=== PATIENT | male | born 1950 | race Caucasian/White ===

== ENCOUNTER → 2016-09-03 | Outpatient (CLI) | payer MEDICARE, OTHER ==
--- NOTE | 2016-09-03 16:32 | CR ---
EXAMINATION: Abdomen HISTORY: Pain COMPARISON: None TECHNIQUE: AP and upright views FINDINGS: There is no free air under the diaphragm. There is a nonobstructive bowel gas pattern. No abnormal calcifications project over the kidneys. Mild degenerative changes are noted within the low er lumbar spine and within the SI joints. Hip joint spaces are grossly preserved. IMPRESSION: No acute findings within the abdomen.
== END ==
LOC: MW.CHFP 15:22
PROVIDERS: ATTEND Nurse Practitioner Family
DX: R10.9 Unspecified abdominal pain (principal); Z87.19 Personal history of other diseases of the digestive system
CPT/HCPCS: 36415; 74020; 85025; G0463

== ENCOUNTER → 2016-11-12 | Outpatient (CLI) | payer MEDICARE, OTHER ==
[2016-11-12 12:56] LABS: CHLORIDE,CL 101 mmol/L (98-110); SODIUM,NA 134 mmol/L (136-146)
== END ==
LOC: MW.CHFP 12:08
PROVIDERS: ATTEND Student in an Organized Health Care Education/Training Program
DX: E11.9 Type 2 diabetes mellitus without complications (principal); R10.9 Unspecified abdominal pain
CPT/HCPCS: 36415; 80048; G0463

== ENCOUNTER → 2016-11-14 | Outpatient (CLI) | payer MEDICARE, OTHER ==
[~2016-11-14] MED LIST: Iopamidol 755 MG/ML 500 ML Multipack Bottle IVPUSH STA
--- NOTE | 2016-11-14 14:04 | CT ---
CT of the abdomen and pelvis with contrast. HISTORY: Pain TECHNIQUE: Axial CT images were obtained of the abdomen and pelvis following administration of 100 m L of Isovue-370 in the left arm without complication. Coronal and sagittal reconstructions obtained. FINDINGS: The lung bases are clear, no pleural effusion. The liver, spleen, and adrenal glands appear normal. There is a small diverticulum along the posteri or wall of the stomach near the cardia. The gallbladder is normal. No bulky retroperitoneal lymphad enopathy or abdominal ascites. The kidneys enhance and function symmetrically without evidence of obstructive uropathy. Small renal cysts are noted. The large and small bowel are normal in caliber without evidence of obstruction. Moderate diverticul osis without evidence of diverticulitis. No bulky pelvic lymphadenopathy or free pelvic fluid. There is a prominence of the left iliac vein. No bulky pelvic lymphadenopathy or free pelvic fluid. The u rinary bladder appears normal. Prostate is moderately prominent. There is grade 1-2 anterolisthesis of L5 on S1 with bilateral spondylolysis. IMPRESSION: 1. No acute findings within the abdomen or pelvis. 2. Small diverticulum along the posterior aspect of the stomach. 3. Moderate diverticulosis without evidence of diverticulitis.
== END ==
LOC: MW.DI 11:18
PROVIDERS: ATTEND Student in an Organized Health Care Education/Training Program
DX: R10.9 Unspecified abdominal pain (principal); K31.4 Gastric diverticulum; K57.90 Diverticulosis of intestine, part unspecified, without perforation or abscess without bleeding
CPT/HCPCS: 74177; Q9967

== ENCOUNTER 2017-03-11 15:39 | Emergency (ER) | payer MEDICARE, OTHER ==
[2017-03-11] MEDS ORDERED: Sodium Chloride 0.9% 2.5 ML Syringe FLUSH PRN (16:04)
[2017-03-11] MEDS ORDERED: diphenhydrAMINE 50 MG/ML SDV IVPUSH ONE (16:04)
[2017-03-11] MEDS ORDERED: Sodium Chloride 0.9% 10 ML Syringe FLUSH PRN (16:04)
[2017-03-11] MEDS ORDERED: Sodium Chloride 0.9% 1,000 ML IV ONE (16:04)
[2017-03-11] MEDS ORDERED: Metoclopramide 10 MG/2 ML SDV IV ONE (16:04)
--- NOTE | 2017-03-11 16:09 | EDM.PDOC ---
ED HPI GENERAL MEDICAL PROBLEM - General Chief Complaint: Neuro Symptoms/Deficits Stated Complaint: DIZZY Time Seen by Provider: 03/11/17 15:53 - History of Present Illness INITIAL COMMENTS - FREE TEXT/NARRATIVE: HISTORY AND PHYSICAL: History of present illness: The patient is a 66-year-old male with a history of hypertension who follows in our family practice clinic and presents with complaints of a one-week history of sinus congestion and some drainage but no fevers sore throat chest pain or shortness of breath. The patient said he he had a normal day yesterday overall and eat fried and slept fine. He says that about 2 AM he rolled over in bed going from his left side to his right side and when that occurred he suddenly felt very dizzy which woke him up and he had nausea. He did not have a headache he was not lightheaded and he did not pass out. He has no chest pain or shortness of breath and no focal weakness in any of his extremities. He has no neck or back pain that is new or different as he has chronic neck pain. The patient says that the symptoms have persisted through today and then he had an episode of vomiting which prompted him to come here. He called and scheduled a follow-up appointment on but could not get in sooner to the clinic. Patient says he feels worse when he lays flat or moves his head suddenly and worse when his eyes are closed. He has had no recent trauma Review of systems: As per history of present illness and below otherwise all systems reviewed and negative. Past medical history: As per history of present illness and as reviewed below otherwise noncontributory. Surgical history: As per history of present illness and as reviewed below otherwise noncontributory. Social history: No reported history of drug or alcohol abuse. Family history: As per history of present illness and as reviewed below otherwise noncontributory. Physical exam: Gen.: Well-developed well-nourished man who is nontoxic and vital signs have been noted by me HEENT: Atraumatic, normocephalic, pupils reactive, EOMs are intact and there is nystagmus which is very subtle with a fast component to the right, negative for conjunctival pallor or scleral icterus, mucous membranes moist, throat clear, neck supple, nontender, trachea midline. There is no cervical adenopathy or nuchal rigidity and the TMs are dulled bilaterally. Patient does have a nasal quality to his voice but no discrete sinus tenderness on palpation Lungs: Clear to auscultation, breath sounds equal bilaterally, chest nontender. Heart: S1S2, regular rate and rhythm no overt murmurs Abdomen: Soft, nondistended, nontender. Negative for masses or hepatosplenomegaly. Negative for costovertebral tenderness. Pelvis: Stable nontender. Genitourinary: Deferred. Rectal: Deferred. Extremities: Atraumatic, negative for cords or calf pain. Neurovascular unremarkable. Neuro: Awake, alert, oriented. Cranial nerves II through XII unremarkable. Cerebellum unremarkable. Motor and sensory unremarkable throughout. Exam nonfocal. Please note when I have the patient lying in the supine position he said he did not feel his symptomatology but when he closed his eyes he was immediately very dizzy. He sat up and felt better. When the patient moves his head side to side his symptoms are elicited and it is worse when he turns to the right. Diagnostics: CBC CMP EKG CT scan of the head orthostatic vitals Therapeutics: IV fluids Benadryl Reglan Antivert Patient is feeling much improved and has no more nausea and has minimal dizziness as able to lay flat. I discussed with him and all testing results including the CT scan which only showed a right sphenoid sinusitis acute on chronic. As this seems to be the etiology of his positional vertigo I will treat him with antibiotics and advise for nasal spray and positional behavioral modification at home for sleep. He says he takes Kelly on a daily basis anyway check told him to continue. I will give him Antivert for home and recommend Benadryl use for the next 24 hours. I advised him to keep his appointment with Dr. Hale on for reevaluation and further care of this problem Impression: Right sphenoid sinusitis acute on chronic with benign positional vertigo improving Definitive disposition and diagnosis as appropriate pending reevaluation and review of above. - Related Data Allergies Allergy/AdvReac Type Severity Reaction Status Date / Time No Known Allergies Allergy Verified 03/11/17 15:51 Home Meds: Home Meds Aspirin [Lo-Dose Aspirin EC] 81 mg PO DAILY 03/11/17 [History] Cholecalciferol (Vitamin D3) [Vitamin D3] 1 cap PO DAILY 03/11/17 [History] Doxazosin Mesylate 2 mg PO DAILY 03/11/17 [History] Losartan [Cozaar] 50 mg PO DAILY 03/11/17 [History] Multivit-Min/FA/Lycopene/Lut [Centrum Silver Tablet] 1 tab PO DAILY 03/11/17 [ History] amLODIPine Besylate [Amlodipine Besylate] 10 mg PO DAILY 03/11/17 [History] Past Medical History HEENT History: Reports: Other (See Below) Other HEENT History: wears glasses Cardiovascular History: Reports: Hypertension Gastrointestinal History: Reports: GERD, Other (See Below) Other Gastrointestinal History: colon fissure hx - Past Surgical History Musculoskeletal Surgical History: Reports: Knee Replacement Social & Family History - Family History Family Medical History: Noncontributory - Tobacco Use Smoking Status *Q: Never Smoker - Recreational Drug Use Recreational Drug Use: No ED ROS GENERAL - Review of Systems Review Of Systems: ROS reveals no pertinent complaints other than HPI. ED EXAM, GENERAL - Physical Exam Exam: See Below (See dictation) Course - Vital Signs Last Recorded V/S: Last Vital Signs Temp 36.2 C 03/11/17 15:47 Pulse 78 03/11/17 15:47 Resp 18 03/11/17 15:47 BP 169/87 H 03/11/17 15:47 Pulse Ox 95 03/11/17 15:47 Orthostatic Blood Pressure [ 122/60 Standing] Orthostatic Blood Pressure [ 123/64 Sitting] Orthostatic Blood Pressure [ 129/68 Supine] - Orders/Labs/Meds Orders: Active Orders 24 hr Category Date Time Status EKG Documentation Completion [RC] STAT Care 03/11/17 16:09 Active Orthostatic Vital Signs [RC] ASDIRECTED Care 03/11/17 16:09 Active Head wo Cont [CT] Stat Exams 03/11/17 16:04 Taken Sodium Chloride 0.9% [Saline Flush] Med 03/11/17 16:04 Active 10 ml FLUSH ASDIRECTED PRN Sodium Chloride 0.9% [Saline Flush] Med 03/11/17 16:04 Active 2.5 ml FLUSH ASDIRECTED PRN Saline Lock Insert [OM.PC] Stat Oth 03/11/17 16:03 Ordered Medication Orders Sodium Chloride (Saline Flush) 10 ml FLUSH ASDIRECTED PRN PRN Reason: Keep Vein Open Last Admin: 03/11/17 16:17 Dose: 10 ml Sodium Chloride (Saline Flush) 2.5 ml FLUSH ASDIRECTED PRN PRN Reason: Keep Vein Open Last Admin: 03/11/17 16:17 Dose: 2.5 ml Labs: Laboratory Tests 03/11/17 03/11/17 Range/Units 16:12 16:12 WBC 6.17 (4.0-11.0) K/uL RBC 4.77 (4.50-5.90) M/uL Hgb 14.0 (13.0-17.0) g/dL Hct 40.0 (38.0-50.0) % MCV 88.5 (80.0-98.0) fL MCH 29.4 (27.0-32.0) pg MCHC 35.0 (31.0-37.0) g/dL RDW Std Deviation 39.0 (28.0-62.0) fl RDW Coeff of Steph 12 (11.0-15.0) % Plt Count 219 (150-400) K/uL MPV 10.10 (7.40-12.00) fL Neut % (Auto) 67.4 (48.0-80.0) % Lymph % (Auto) 21.7 (16.0-40.0) % Polk % (Auto) 9.4 (0.0-15.0) % Eos % (Auto) 1.0 (0.0-7.0) % Baso % (Auto) 0.5 (0.0-1.5) % Neut # (Auto) 4.2 (1.4-5.7) K/uL Lymph # (Auto) 1.3 (0.6-2.4) K/uL Polk # (Auto) 0.6 (0.0-0.8) K/uL Eos # (Auto) 0.1 (0.0-0.7) K/uL Baso # (Auto) 0.0 (0.0-0.1) K/uL Nucleated RBC % 0.0 /100WBC Nucleated RBCs # 0 K/uL Sodium 133 L (136-146) mmol/L Potassium 4.1 (3.5-5.1) mmol/L Chloride 102 (98-110) mmol/L Carbon Dioxide 24 (21-31) mmol/L BUN 16 (6.0-23.0) mg/dL Creatinine 0.8 (0.6-1.5) mg/dL Est Cr Clr Drug Dosing 88.38 mL/min Estimated GFR (MDRD) > 60.0 ml/min Glucose 116 H (60-110) mg/dL Calcium 9.9 (8.8-10.8) mg/dL Total Bilirubin 1.0 (0.1-1.5) mg/dL AST 26 (5-40) IU/L ALT 39 (8-54) IU/L Alkaline Phosphatase 54 (40-150) Total Protein 7.4 (6.0-8.0) g/dL Albumin 4.4 (3.4-4.8) g/dL Globulin 3.0 (2.0-3.5) g/dL Albumin/Globulin Ratio 1.5 (1.3-2.8) Meds: Medications Generic Name Dose Route Start Last Admin Trade Name Freq PRN Reason Stop Dose Admin Sodium Chloride 10 ml 03/11/17 16:04 03/11/17 16:17 Saline Flush FLUSH 10 ml ASDIRECTED PRN Administration Keep Vein Open Sodium Chloride 2.5 ml 03/11/17 16:04 03/11/17 16:17 Saline Flush FLUSH 2.5 ml ASDIRECTED PRN Administration Keep Vein Open Discontinued Medications Generic Name Dose Route Start Last Admin Trade Name Freq PRN Reason Stop Dose Admin Diphenhydramine HCl 50 mg 03/11/17 16:04 03/11/17 16:17 Benadryl IVPUSH 03/11/17 16:05 50 mg ONETIME ONE Administration Sodium Chloride 1,000 mls @ 999 mls/hr 03/11/17 16:04 03/11/17 16:17 Normal Saline IV 03/11/17 17:04 999 mls/hr STAT ONE Administration Meclizine HCl 25 mg 03/11/17 17:30 Antivert PO 03/11/17 17:31 ONETIME ONE Metoclopramide HCl 10 mg 03/11/17 16:04 03/11/17 16:17 Reglan IV 03/11/17 16:05 10 mg ONETIME ONE Administration Departure - Departure Time of Disposition: 18:12 Disposition: Home, Self-Care 01 Condition: Good Clinical Impression: Sinusitis, acute, sphenoidal Qualifiers: Recurrence: not specified as recurrent Qualified Code(s): J01.30 - Acute sphenoidal sinusitis, unspecified Benign positional vertigo Qualifiers: Laterality: right Qualified Code(s): H81.11 - Benign paroxysmal vertigo, right ear - Discharge Information Referrals: PCP,None [Primary Care Provider] - Forms: ED Department Discharge Additional Instructions: The following information is given to patients seen in the emergency department who are being discharged to home. This information is to outline your options for follow-up care. We provide all patients seen in our emergency department with a follow-up referral. The need for follow-up, as well as the timing and circumstances, are variable depending upon the specifics of your emergency department visit. If you don't have a primary care physician on staff, we will provide you with a referral. We always advise you to contact your personal physician following an emergency department visit to inform them of the circumstance of the visit and for follow-up with them and/or the need for any referrals to a consulting specialist. The emergency department will also refer you to a specialist when appropriate. This referral assures that you have the opportunity for followup care with a specialist. All of these measure are taken in an effort to provide you with optimal care, which includes your followup. Under all circumstances we always encourage you to contact your private physician who remains a resource for coordinating your care. When calling for followup care, please make the office aware that this follow-up is from your recent emergency room visit. If for any reason you are refused follow-up, please contact the [facility] emergency department at and ask to speak to the emergency department charge nurse. [facility] Primary care- Internal Medicine and Family [address] [address] These keep your appointment with Dr. Hale in the clinic as scheduled for follow -up and further care. Return to ER as needed and as discussed. Please take over- the-counter Benadryl, 50 mg, every 6 hours for the next 24 hours and then as needed every 6 hours for dizziness. Please also started taking the Antivert for the next few days and then as needed for dizziness. Push hydration rest and do all movements and behaviors slowly. Please take antibiotics until they are finished. Use [id number] Flonase or nasal spray to keep the nasal passages open. - My Orders Last 24 Hours: My Active Orders 03/11/17 16:03 Saline Lock Insert [OM.PC] Stat 03/11/17 16:04 Head wo Cont [CT] Stat Sodium Chloride 0.9% [Saline Flush] 10 ml FLUSH ASDIRECTED PRN Sodium Chloride 0.9% [Saline Flush] 2.5 ml FLUSH ASDIRECTED PRN 03/11/17 16:09 EKG Documentation Completion [RC] STAT Orthostatic Vital Signs [RC] ASDIRECTED - Assessment/Plan Last 24 Hours: My Active Orders 03/11/17 16:03 Saline Lock Insert [OM.PC] Stat 03/11/17 16:04 Head wo Cont [CT] Stat Sodium Chloride 0.9% [Saline Flush] 10 ml FLUSH ASDIRECTED PRN Sodium Chloride 0.9% [Saline Flush] 2.5 ml FLUSH ASDIRECTED PRN 03/11/17 16:09 EKG Documentation Completion [RC] STAT Orthostatic Vital Signs [RC] ASDIRECTED
[2017-03-11 16:47] LABS: CHLORIDE,CL 102 mmol/L (98-110); SODIUM,NA 133 mmol/L (136-146)
[2017-03-11] MEDS ORDERED: Meclizine 25 MG Tab PO ONE (17:30)
[2017-03-11 18:18] VITALS: BP 141/80
--- NOTE | 2017-03-12 10:08 | CT ---
EXAM DATE: 03/11/17 PATIENT'S AGE: 66 Patient: LOCO RODRIGUES Facility: [place], [place] Site . Site : [id number] Study: CT Head [id number]/11/2017 5:06:49 PM Ordering Physician: Tana Best Final Report: INDICATION: Dizziness and nausea since middle of night. TECHNIQUE: CT head without i.v. contrast. COMPARISON: None FINDINGS: CSF spaces: Within normal limits for age. Brain parenchyma: The brain parenchyma is normal in appearance with preservation of the ellis-white differentiation. No sign of mass, hemorrhage, or midline shift seen. Skull base and calvarium: Moderate mucosal thickening involving the right sphenoid sinus with likely air-fluid level. The mastoid air cells are clear. The visualized orbits are grossly unremarkable. No skull fractures are seen. IMPRESSION: 1. No evidence of acute infarction, intracranial hemorrhage, or mass effect seen. 2. Likely acute on chronic right sphenoid sinus disease. Dictated by Stevenson Quick MD @ 03/11/2017 5:58:06 PM Dictated by: Stevenson Quick MD @ 03/11/2017 17:58:10 (Electronic Signature) Report Signed by Proxy. TANYA
== END 2017-03-11 18:28 | disposition home or self-care (01) ==
LOC: MW.ED 15:39
DX: J01.30 Acute sphenoidal sinusitis, unspecified (principal); H81.11 Benign paroxysmal vertigo, right ear; I10 Essential (primary) hypertension; K21.9 Gastro-esophageal reflux disease without esophagitis; Z96.659 Presence of unspecified artificial knee joint; Z79.82 Long term (current) use of aspirin; Z79.899 Other long term (current) drug therapy
CPT/HCPCS: 36415; 70450; 80053; 85025; 93005; 96361; 96374; 96375; 99284; A9270; J1200; J2765; J7040; 99283

== ENCOUNTER 2017-07-31 15:43 | Emergency (ER) | payer MEDICARE, OTHER ==
[2017-07-31 15:55] VITALS: BP 139/79
[2017-07-31] MEDS ORDERED: Lidocaine 1% 20 ML MDV INJECT ONE (15:59)
[2017-07-31] MEDS ORDERED: Diphtheria,Pertussis(Acell),Tetanus Vaccine 0.5 ML Syringe IM ONE (16:00)
--- NOTE | 2017-07-31 16:00 | EDM.PDOC ---
ED HPI GENERAL MEDICAL PROBLEM - General Chief Complaint: Laceration Stated Complaint: CUT FINGER ON LT HAND Time Seen by Provider: 07/31/17 16:00 Source of Information: Reports: Patient - History of Present Illness INITIAL COMMENTS - FREE TEXT/NARRATIVE: HISTORY AND PHYSICAL: History of present illness: [ Patient is a 2 cm linear laceration on his second digit on the dorsum and and function intact pre-and post suture entirely neurovascularly intact He was using a knife cutting ports himself sustaining a laceration No other injury no fever nausea vomiting chills sweats ] Review of systems: As per history of present illness and below otherwise all systems reviewed and negative. Past medical history: As per history of present illness and as reviewed below otherwise noncontributory. Surgical history: As per history of present illness and as reviewed below otherwise noncontributory. Social history: No reported history of drug or alcohol abuse. Family history: As per history of present illness and as reviewed below otherwise noncontributory. Physical exam: HEENT: Atraumatic, normocephalic, pupils reactive, negative for conjunctival pallor or scleral icterus, mucous membranes moist, throat clear, neck supple, nontender, trachea midline. Lungs: Clear to auscultation, breath sounds equal bilaterally, chest nontender. Heart: S1S2, regular, negative for clicks, rubs, or JVD. Abdomen: Soft, nondistended, nontender. Negative for masses or hepatosplenomegaly. Negative for costovertebral tenderness. Pelvis: Stable nontender. Genitourinary: Deferred. Rectal: Deferred. Extremities: Atraumatic, negative for cords or calf pain. Neurovascular unremarkable. Neuro: Awake, alert, oriented. Cranial nerves II through XII unremarkable. Cerebellum unremarkable. Motor and sensory unremarkable throughout. Exam nonfocal. Skin as per history of present illness otherwise unremarkable Diagnostics: [Clinical] Therapeutics: [Lidocaine Tetanus status updated Wound cleansed and explored #3-0 Monosof sutures placed interrupted no complication or complaint Neosporin Telfa bandaging Sutures out in 10 days ] Impression: [25 cm linear laceration] Definitive disposition and diagnosis as appropriate pending reevaluation and review of above. - Related Data Allergies Allergy/AdvReac Type Severity Reaction Status Date / Time No Known Allergies Allergy Verified 07/31/17 15:55 Home Meds: Home Meds Aspirin [Lo-Dose Aspirin EC] 81 mg PO DAILY 03/11/17 [History] Cholecalciferol (Vitamin D3) [Vitamin D3] 2,000 units PO DAILY 03/11/17 [History ] Doxazosin Mesylate 2 mg PO DAILY 03/11/17 [History] Losartan [Cozaar] 50 mg PO DAILY 03/11/17 [History] Multivit-Min/FA/Lycopene/Lut [Centrum Silver Tablet] 1 tab PO DAILY 03/11/17 [ History] amLODIPine Besylate [Amlodipine Besylate] 10 mg PO DAILY 03/11/17 [History] Celecoxib [CeleBREX] 200 mg PO DAILY 07/31/17 [History] Triamcinolone Acetonide [Triamcinolone Acetonide 0.1% Crm] 1 dose TOP DAILY [History] Past Medical History HEENT History: Reports: Other (See Below) Other HEENT History: wears glasses Cardiovascular History: Reports: Hypertension Gastrointestinal History: Reports: GERD, Other (See Below) Other Gastrointestinal History: colon fissure hx - Infectious Disease History Infectious Disease History: Reports: Chicken Pox, Measles, Mumps - Past Surgical History Musculoskeletal Surgical History: Reports: Knee Replacement Social & Family History - Family History Family Medical History: Noncontributory - Tobacco Use Smoking Status *Q: Never Smoker - Recreational Drug Use Recreational Drug Use: No ED ROS GENERAL - Review of Systems Review Of Systems: ROS reveals no pertinent complaints other than HPI. ED EXAM, SKIN/RASH Exam: See Below Course - Vital Signs Last Recorded V/S: Last Vital Signs Temp 97.9 F 07/31/17 15:53 Pulse 85 07/31/17 15:53 Resp 18 07/31/17 15:53 BP 139/79 07/31/17 15:53 Pulse Ox 96 07/31/17 15:53 - Orders/Labs/Meds Orders: Active Orders 24 hr Category Date Time Status Vaccines to be Administered [RC] PER UNIT ROUTINE Care 07/31/17 16:01 Active Meds: Medications Discontinued Medications Generic Name Dose Route Start Last Admin Trade Name Freq PRN Reason Stop Dose Admin Diphtheria/Tetanus/Acell Pertussis 0.5 ml 07/31/17 16:00 07/31/17 16:20 Adacel IM 07/31/17 16:01 0.5 ml .ONCE ONE Administration Lidocaine HCl 20 ml 07/31/17 15:59 07/31/17 16:20 Xylocaine 1% INJECT 07/31/17 16:00 20 ml ONETIME ONE Administration Departure - Departure Time of Disposition: 16:45 Disposition: Home, Self-Care 01 Condition: Good Clinical Impression: Laceration - Discharge Information Referrals: Horace Hale MD [Primary Care Provider] - Forms: ED Department Discharge Additional Instructions: Standard wound care instruction is provided Keep wound clean and dry for 48 hours Neosporin Telfa bandaging Return if redness warmth or pus drainage or fever nausea vomiting chills sweats signs of an infection that would prompt reexamination and possible antibiotics No antibiotics indicated at this time outside of the Neosporin Sutures out in 10 days either through primary care or return to ER The following information is given to patients seen in the emergency department who are being discharged to home. This information is to outline your options for follow-up care. We provide all patients seen in our emergency department with a follow-up referral. The need for follow-up, as well as the timing and circumstances, are variable depending upon the specifics of your emergency department visit. If you don't have a primary care physician on staff, we will provide you with a referral. We always advise you to contact your personal physician following an emergency department visit to inform them of the circumstance of the visit and for follow-up with them and/or the need for any referrals to a consulting specialist. The emergency department will also refer you to a specialist when appropriate. This referral assures that you have the opportunity for follow-up care with a specialist. All of these measure are taken in an effort to provide you with optimal care, which includes your follow-up. Under all circumstances we always encourage you to contact your private physician who remains a resource for coordinating your care. When calling for follow-up care, please make the office aware that this follow-up is from your recent emergency room visit. If for any reason you are refused follow-up, please contact the [facility] emergency department at and asked to speak to the emergency department charge nurse. - My Orders Last 24 Hours: My Active Orders 07/31/17 16:01 Vaccines to be Administered [RC] PER UNIT ROUTINE - Assessment/Plan Last 24 Hours: My Active Orders 07/31/17 16:01 Vaccines to be Administered [RC] PER UNIT ROUTINE
== END 2017-07-31 17:05 | disposition home or self-care (01) ==
LOC: MW.ED 15:43
DX: S61.211A Laceration without foreign body of left index finger without damage to nail, initial encounter (principal); I10 Essential (primary) hypertension; Z79.82 Long term (current) use of aspirin; Z79.899 Other long term (current) drug therapy; Z23 Encounter for immunization; W26.0XXA Contact with knife, initial encounter
CPT/HCPCS: 12001; 90471; 90715; 99282; 99282-25

== ENCOUNTER 2020-04-20 16:15 | Emergency (ER) | payer MEDICARE, OTHER ==
[2020-04-20] MEDS ORDERED: Diphtheria,Pertussis(Acell),Tetanus Vaccine 0.5 ML Syringe IM ONE (18:09)
[2020-04-20] MEDS ORDERED: Lidocaine 1% with EPINEPHrine 1:100,000 10 ML MDV INJECT ONE (18:09)
--- NOTE | 2020-04-20 18:15 | EDM.PDOC ---
ED HPI GENERAL MEDICAL PROBLEM - General Chief Complaint: Laceration Stated Complaint: cut hand-left Time Seen by Provider: 04/20/20 17:24 Source of Information: Reports: Patient History Limitations: Reports: No Limitations - History of Present Illness INITIAL COMMENTS - FREE TEXT/NARRATIVE: 69-year-old male presents with left hand laceration while he was cutting with a knit goods cutter hand just prior to arrival. He is right-handed. Tetanus is not up-to-date. ROS: A 10-point review of systems, other than pertinent positives and negatives as stated per HPI, is otherwise negative Past medical history: No additional pertinent history Past Surgical history: No additional pertinent history Social history: No additional pertinent history Family history: No additional pertinent history PHYSICAL EXAM General: AOx4, GCS = 15, No distress HEENT: dry mucous membrane Neck: supple, no meningismus, no Kernig or Brudzinski Cardiac: S1S2 RRR Respiratory: CTAB, no crackles or rales, no wheezing Abdomen: Soft, nontender, no rebound or guarding, nondistended, no pulsatile mass. Back: nontender Musculoskeletal: NVI distally, 3 cm linear transverse laceration to left thumb metacarpal, normal thumb opposition, abduction and adduction, flexion and extension against active resistance. No obvious tendon injury. Neuro: No focal deficits left hand Pain Score (Numeric/FACES): 6 - Related Data Allergies Allergy/AdvReac Type Severity Reaction Status Date / Time No Known Allergies Allergy Verified 07/31/17 15:55 Home Meds: Home Meds Aspirin [Lo-Dose Aspirin EC] 81 mg PO DAILY 03/11/17 [History] Cholecalciferol (Vitamin D3) [Vitamin D3] 2,000 units PO DAILY 03/11/17 [History] Doxazosin Mesylate 2 mg PO DAILY 03/11/17 [History] Losartan [Cozaar] 100 mg PO DAILY 03/11/17 [History] Multivit-Min/FA/Lycopen/Lutein [Centrum Silver Tablet] 1 tab PO DAILY 03/11/17 [History] amLODIPine Besylate [Amlodipine Besylate] 10 mg PO DAILY 03/11/17 [History] Celecoxib [CeleBREX] 200 mg PO DAILY 07/31/17 [History] Triamcinolone Acetonide [Triamcinolone Acetonide 0.1% Crm] 1 dose TOP DAILY 07/31/17 [History] Famotidine 40 mg PO BEDTIME 04/20/20 [History] Omeprazole 20 mg PO DAILY 04/20/20 [History] Tamsulosin [Flomax] 0.4 mg PO DAILY 04/20/20 [History] Past Medical History HEENT History: Reports: Other (See Below) Other HEENT History: wears glasses Cardiovascular History: Reports: Hypertension Gastrointestinal History: Reports: GERD, Other (See Below) Other Gastrointestinal History: colon fissure hx - Infectious Disease History Infectious Disease History: Reports: Chicken Pox - Past Surgical History Musculoskeletal Surgical History: Reports: Knee Replacement Social & Family History - Family History Family Medical History: Noncontributory - Tobacco Use Tobacco Use Status *Q: Never Tobacco User - Recreational Drug Use Recreational Drug Use: No ED ROS GENERAL - Review of Systems Review Of Systems: Comprehensive ROS is negative, except as noted in HPI. ED EXAM, SKIN/RASH Exam: See Below (see dictation) ED SKIN PROCEDURES - Laceration/Wound Repair Left Lateral Hand Appearance: Subcutaneous, Linear, Mildly Contaminated Distal NVT: Neuro & Vascular Intact, No Tendon Injury Anesthetic Type: Local Local Anesthesia - Lidocaine (Xylocaine): 1% with EPI Local Anesthetic Volume: 5cc Skin Prep: Saline Saline Irrigation (cc's): 10 Exploration/Debridement/Repair: Wound Explored, Explored to Base, Minimal Debridement, Foreign Material Removed Closed with: Sutures Lac/Wound length In cm: 4 Suture Size: 4-0 # of Sutures: 7 Suture Type: Prolene Sterile Dressing Applied: Nurse Tetanus Status Addressed: Yes Complications: No Course - Vital Signs Last Recorded V/S: Last Vital Signs Temp 95.5 F L 04/20/20 16:47 Pulse 71 04/20/20 16:47 Resp 16 04/20/20 16:47 BP 147/85 H 04/20/20 16:47 Pulse Ox 98 04/20/20 16:47 - Orders/Labs/Meds Orders: Active Orders 24 hr Category Date Time Status Vaccines to be Administered [RC] PER UNIT ROUTINE Care 04/20/20 18:10 Active Meds: Medications Discontinued Medications Generic Name Dose Route Start Last Admin Trade Name Jona PRN Reason Stop Dose Admin Diphtheria/Tetanus/Acell Pertussis 0.5 ml 04/20/20 18:09 04/20/20 18:29 Adacel IM 04/20/20 18:10 0.5 ml .ONCE ONE Administration Lidocaine/Epinephrine 10 ml 04/20/20 18:09 04/20/20 18:31 Xylocaine 1% With Epinephrine 1:100,000 INJECT 04/20/20 18:10 Not Given ONETIME ONE Lidocaine/Epinephrine Confirm 04/20/20 18:27 04/20/20 18:29 Xylocaine 1% With Epinephrine 1:100,000 Administered 04/20/20 18:28 20 ml Dose Administration 20 ml .ROUTE .[facility] ONE - Re-Assessments/Exams Free Text/Narrative Re-Assessment/Exam: 04/20/20 18:15 After [] in the ER, the patient improved and is currently stable for discharge. I performed a repeat exam and did not appreciate new abnormal findings. Patient exhibits normal vital signs and has a normal gait on road test. I advised the patient to return to the ER for reevaluation if symptoms worsened, including fever, worsening pain, or any other worrisome symptoms. I instructed the patient to follow up with their PCP within 2-3 days. MEDICAL DECISION MAKING: I reviewed the patients past medical records, lab and radiographic findings. I discussed the case with the patient. My differential diagnosis included: [] Departure - Departure Time of Disposition: 18:50 Disposition: Home, Self-Care 01 Condition: Good Clinical Impression: Hand laceration - Discharge Information *PRESCRIPTION DRUG MONITORING PROGRAM REVIEWED*: Not Applicable *COPY OF PRESCRIPTION DRUG MONITORING REPORT IN PATIENT JOANNE: Not Applicable Instructions: Laceration Care, Adult Referrals: Tim Vraghese MD [Primary Care Provider] - 2 Weeks (for suture removal) Forms: ED Department Discharge Additional Instructions: The need for follow-up, as well as the timing and circumstances, are variable depending upon the specifics of your emergency department visit. If you don't have a primary care physician on staff, we will provide you with a referral. We always advise you to contact your personal physician following an emergency department visit to inform them of the circumstance of the visit and for follow-up with them and/or the need for any referrals to a consulting specialist. The emergency department will also refer you to a specialist when appropriate. This referral assures that you have the opportunity for follow-up care with a specialist. All of these measure are taken in an effort to provide you with optimal care, which includes your follow-up. Under all circumstances we always encourage you to contact your private physician who remains a resource for coordinating your care. When calling for follow-up care, please make the office aware that this follow-up is from your recent emergency room visit. If for any reason you are refused follow-up, please contact the [facility] Emergency Department at and asked to speak to the emergency department charge nurse. If you do not have a primary care doctor, please follow up with the clinics below within 3-5 days. [facility] - Primary [facility] [address] [place] [address] [id number] [address] [address] Sepsis Event Note (ED) - Evaluation Sepsis Screening Result: No Definite Risk - Focused Exam Vital Signs: Vital Signs Temp Pulse Resp BP Pulse Ox 04/20/20 16:47 95.5 F L 71 16 147/85 H 98 - My Orders Last 24 Hours: My Active Orders 04/20/20 18:10 Vaccines to be Administered [RC] PER UNIT ROUTINE - Assessment/Plan Last 24 Hours: My Active Orders 04/20/20 18:10 Vaccines to be Administered [RC] PER UNIT ROUTINE
[2020-04-20] MEDS ORDERED: Lidocaine 1% with EPINEPHrine 1:100,000 20 ML MDV ONE (18:27)
[2020-04-20 19:07] VITALS: BP 137/74; PULSE 60
== END 2020-04-20 18:56 | disposition home or self-care (01) ==
LOC: MW.ED 16:15
DX: S61.412A Laceration without foreign body of left hand, initial encounter (principal); I10 Essential (primary) hypertension; K21.9 Gastro-esophageal reflux disease without esophagitis; Z23 Encounter for immunization; Z79.82 Long term (current) use of aspirin; Z79.899 Other long term (current) drug therapy; W26.8XXA Contact with other sharp object(s), not elsewhere classified, initial encounter
CPT/HCPCS: 12002; 90471; 90715; 99282-25

== ENCOUNTER 2022-10-26 07:52 | Day surgery (SDC) | payer MEDICARE, OTHER ==
[~2022-10-26 07:52] MED LIST changes: -Iopamidol 755 MG/ML 500 ML Multipack Bottle IVPUSH STA; +Lactated Ringers 1,000 ML IV SCH; +Sodium Chloride 0.9% 10 ML Syringe FLUSH PRN; +Sodium Chloride 0.9% 2.5 ML Syringe FLUSH PRN; +Sodium Chloride 0.9% 20 ML SDV IV PRN; +propofoL 50 ML ONE
[2022-10-26 10:37] VITALS: BP 124/67; PULSE 56
== END 2022-10-26 10:20 | disposition home or self-care (01) ==
LOC: MW.SDS 07:52
PROVIDERS: ATTEND Surgery
DX: K29.50 Unspecified chronic gastritis without bleeding (principal); K44.9 Diaphragmatic hernia without obstruction or gangrene; K21.00 Gastro-esophageal reflux disease with esophagitis, without bleeding; K31.4 Gastric diverticulum; I10 Essential (primary) hypertension; E87.1 Hypo-osmolality and hyponatremia; K22.89 Other specified disease of esophagus; E66.9 Obesity, unspecified; Z68.34 Body mass index [BMI] 34.0-34.9, adult; Z87.19 Personal history of other diseases of the digestive system; Z87.891 Personal history of nicotine dependence; K57.30 Diverticulosis of large intestine without perforation or abscess without bleeding; K57.32 Diverticulitis of large intestine without perforation or abscess without bleeding; Z80.0 Family history of malignant neoplasm of digestive organs; Z86.010 Personal history of colon polyps; Z91.09 Other allergy status, other than to drugs and biological substances; Z79.82 Long term (current) use of aspirin; Z79.899 Other long term (current) drug therapy; Z90.49 Acquired absence of other specified parts of digestive tract; Z85.038 Personal history of other malignant neoplasm of large intestine; Z90.89 Acquired absence of other organs
CPT/HCPCS: 43239; J2704; J7120; 00813; 99100

== ENCOUNTER 2024-06-26 16:54 | Emergency (ER) | payer MEDICARE, OTHER ==
[2024-06-26] MEDS ORDERED: Sodium Chloride 0.9% 2.5 ML Syringe FLUSH PRN (17:26)
[2024-06-26] MEDS ORDERED: Sodium Chloride 0.9% 10 ML Syringe FLUSH PRN (17:26)
[2024-06-26 17:43] LABS: BASOPHILS ABSOLUTE AUTO 0.06 K/uL (0.00-0.20); BASOPHILS PERCENT AUTO 0.8 % (0.0-1.0); EOSINOPHILS PERCENT AUTO 1.3 % (0.0-6.0); HEMATOCRIT 41.5 % (42.0-52.0); HEMOGLOBIN 15.5 g/dL (14.0-18.0); IMMATURE GRAN ABSOLUTE AUTO 0.12 K/uL (0.00-0.05); IMMATURE GRAN PERCENT AUTO 1.6 % (0.0-0.4); LYMPHOCYTES ABSOLUTE AUTO 2.27 K/uL (1.00-4.80); LYMPHOCYTES PERCENT AUTO 30.6 % (24.0-44.0); MEAN CORPUSCULAR HEMOGLOBIN 33.4 pg (28.0-32.0); MEAN CORPUSCULAR HGB CONC 37.3 g/dL (32.0-36.0); MEAN CORPUSCULAR VOLUME 89.4 fL (83.0-99.0); MEAN PLATELET VOLUME 9.6 fL (9.4-12.4); MONOCYTES ABSOLUTE AUTO 0.95 K/uL (0.00-0.80); MONOCYTES PERCENT AUTO 12.8 % (0.0-8.0); NEUTROPHILS ABSOLUTE AUTO 3.93 K/uL (1.80-7.70); NEUTROPHILS PERCENT AUTO 52.9 % (41.0-71.0); PLATELET COUNT,PLT 253 K/uL (150-400); RED BLOOD CELL COUNT 4.64 M/uL (4.52-5.90); WHITE BLOOD CELL COUNT,WBC 7.43 K/uL (3.9-11.3)
[2024-06-26 17:57] LABS: A/G RATIO 1.1 (0.9-1.6); ALBUMIN 3.8 g/dL (3.4-5.0); BILIRUBIN TOTAL 0.9 mg/dL (0.2-1.0); CALCIUM 10.2 mg/dL (8.5-10.1); CARBON DIOXIDE,CO2 31.3 mmol/L (21.0-32.0); EST CRCL DRUG DOSING (CG) 63.83 mL/min; POTASSIUM,K 3.9 mmol/L (3.5-5.1); PROTEIN TOTAL,TP 7.2 g/dL (6.4-8.2)
[2024-06-26] MEDS: Iopamidol 755 Mg/ML 100 ML Bottle IVPUSH ONE (18:38)
[2024-06-26 20:46] VITALS: BP 135/77; PULSE 75
== END 2024-06-26 20:46 | disposition home or self-care (01) ==
LOC: MW.ED 16:54
DX: K21.9 Gastro-esophageal reflux disease without esophagitis (principal); I10 Essential (primary) hypertension; M19.90 Unspecified osteoarthritis, unspecified site; E66.9 Obesity, unspecified; Z90.49 Acquired absence of other specified parts of digestive tract; Z96.659 Presence of unspecified artificial knee joint; Z88.8 Allergy status to other drugs, medicaments and biological substances; Z91.048 Other nonmedicinal substance allergy status; Z79.82 Long term (current) use of aspirin; Z79.899 Other long term (current) drug therapy; Z68.35 Body mass index [BMI] 35.0-35.9, adult; Z75.8 Other problems related to medical facilities and other health care
CPT/HCPCS: 36415; 71046; 71275; 80053; 84484; 85025; 93005; 99285; Q9967